=== PATIENT | male | born 1990 | race Caucasian/White ===

== ENCOUNTER 2020-05-06 11:46 | Emergency (ER) | payer BC ==
[2020-05-06 12:23] VITALS: BP 121/86; PULSE 87
--- NOTE | 2020-05-06 12:23 | EDM.PDOC ---
ED HPI GENERAL MEDICAL PROBLEM - General Chief Complaint: Genitourinary Problem Stated Complaint: PAIN IN GENITALS Time Seen by Provider: 05/06/20 12:16 Source of Information: Reports: Patient, RN Notes Reviewed History Limitations: Reports: No Limitations - History of Present Illness INITIAL COMMENTS - FREE TEXT/NARRATIVE: Patient is a 29-year-old male who presents to the ED for the evaluation of genital pain. Patient states that he woke up this morning, he has been experiencing pain in his testicles, what feels to be like in his penis as well, along with the rectum, and even up into his lower abdomen. Patient states he is having no nausea vomiting or diarrhea. He did have a good couple bowel movements yesterday. He denies any dysuria, frequency or urgency. He is noting no penile discharge as well. He states that it is a very sharp stabbing pain, nothing seems to make it better, he is not sure if anything even makes it worse, he thought may be walking helped a little bit, but then even walking around seemed to cause a lot of pain. He did not take anything for pain management. He did go to work this morning, but had to leave due to the pain. He states he has not had any fevers or chills, but states he gets hot flashes with the pain. He is sexually active, but does have a , and reports a monogamous relationship. He notes that he had a vasectomy 2 years ago. He denies any insertive anal sex that him and his practice, he is not worried about any STDs at today's visit. He is complaining mostly of posterior testicular pain. He notes both testicles to be within the scrotum. States his whole entire groin hurts, he states he has pain in his rectum, and up into his lower abdomen, testes and his penis. Groin Pain Score (Numeric/FACES): 9 - Related Data Allergies Allergy/AdvReac Type Severity Reaction Status Date / Time No Known Allergies Allergy Verified 05/06/20 12:23 Home Meds: Home Meds Acetaminophen/HYDROcodone [[place] 325-5 MG] 1 tab PO Q6H PRN #15 tablet 05/06/20 [Rx] Doxycycline [Vibramycin] 100 mg PO BID 14 Days #28 tab 05/06/20 [Rx] Levofloxacin 500 mg PO DAILY #9 tablet 05/06/20 [Rx] Past Medical History - Past Health History Medical/Surgical History: Denies Medical/Surgical History ED ROS GENERAL - Review of Systems Review Of Systems: Comprehensive ROS is negative, except as noted in HPI. ED EXAM, RENAL/ - Physical Exam Exam: See Below Exam Limited By: No Limitations General Appearance: Alert, WD/WN, No Apparent Distress (pt appears to be in pain, but no distress) Ears: Normal External Exam Nose: Normal Inspection Throat/Mouth: Normal Inspection Head: Atraumatic, Normocephalic Neck: Normal Inspection Respiratory/Chest: No Respiratory Distress, Lungs Clear, Normal Breath Sounds, No Accessory Muscle Use, Chest Non-Tender Cardiovascular: Normal Peripheral Pulses, Regular Rate, Rhythm, No Murmur GI/Abdominal: Normal Bowel Sounds, Soft, Non-Tender, No Distention, No Mass (Male) Exam: No Hernia, Normal Inspection, Circumcised, Deferred (prostate exam), Scrotum Tenderness (L) (posterior), Scrotum Tenderness (R) (posterior), Testicular Tenderness (L) (posterior), Testicular Tenderness (R) (posterior). No: Scrotal Swelling, Testicular Mass, Urethral Discharge Extremities: Normal Inspection, Normal Capillary Refill Neurological: Alert, Oriented, Normal Cognition, No Motor/Sensory Deficits Psychiatric: Normal Affect, Normal Mood Skin Exam: Warm, Dry, Intact, Normal Color, No Rash Course - Vital Signs Last Recorded V/S: Last Vital Signs Temp 97.4 F 05/06/20 12:20 Pulse 87 05/06/20 12:20 Resp 16 05/06/20 12:20 BP 121/86 05/06/20 12:20 Pulse Ox 97 05/06/20 12:20 - Orders/Labs/Meds Orders: Active Orders 24 hr Category Date Time Status UA W/MICROSCOPIC [URIN] Stat Lab 05/06/20 12:25 Ordered Labs: Laboratory Tests 05/06/20 Range/Units 12:25 Urine Color Yellow (Yellow) Urine Appearance Clear (Clear) Urine pH 5.5 (5.0-8.0) Ur Specific [place] 1.025 (1.005-1.030) Urine Protein Negative (Negative) Urine Glucose (UA) Negative (Negative) Urine Ketones 1+ H (Negative) Urine Occult Blood Negative (Negative) Urine Nitrite Negative (Negative) Urine Bilirubin Negative (Negative) Urine Urobilinogen 0.2 (0.2-1.0) Ur Leukocyte Esterase Negative (Negative) Meds: Medications Discontinued Medications Generic Name Dose Route Start Last Admin Trade Name Freq PRN Reason Stop Dose Admin Hydromorphone HCl 1 mg 05/06/20 12:26 05/06/20 12:41 Dilaudid IM 05/06/20 12:27 1 mg ONETIME ONE Administration Ketorolac Tromethamine 60 mg 05/06/20 12:36 05/06/20 12:41 Toradol IM 05/06/20 12:37 60 mg ONETIME ONE Administration Levofloxacin 500 mg 05/06/20 13:41 Levaquin PO 05/06/20 13:42 ONETIME ONE Ondansetron HCl 4 mg 05/06/20 12:26 05/06/20 12:42 Zofran Odt PO 05/06/20 12:27 4 mg ONETIME ONE Administration - Re-Assessments/Exams Free Text/Narrative Re-Assessment/Exam: 05/06/20 12:44 Patient presents to the ED for scrotal/penile pain. I do suspect epididymitis in nature. Ultrasound to be obtained along with urinalysis for initial evaluation. Patient will be given 1 mg IM Dilaudid, 60 mg IM Toradol, and 4 mg ODT Zofran for initial management. 05/06/20 13:38 Patient's ultrasound did come back, there was a possible mild left-sided epididymitis appreciated. Minimal hydroceles on both sides, small 3 mm epididymal cyst on the left side. No other abnormalities identified on the testicular ultrasound exam. UA is still pending. Patient did report pretty decent pain relief with the medications given. 05/06/20 14:32 UA is unremarkable. Patient will be sent home with 10 day course of Levaquin and will also need to start 2 week course of doxycycline to start after the Levaquin is finished for suspected prostate involvement. Departure - Departure Time of Disposition: 13:39 Disposition: Home, Self-Care 01 Condition: Good Clinical Impression: Epididymitis - Discharge Information *PRESCRIPTION DRUG MONITORING PROGRAM REVIEWED*: Yes *COPY OF PRESCRIPTION DRUG MONITORING REPORT IN PATIENT [place]: No Prescriptions: Levofloxacin 500 mg PO DAILY #9 tablet Acetaminophen/HYDROcodone [[place] 325-5 MG] 1 tab PO Q6H PRN #15 tablet PRN Reason: Pain Doxycycline [Vibramycin] 100 mg PO BID 14 Days #28 tab Instructions: Epididymitis Referrals: PCP,None [Primary Care Provider] - Forms: ED Department Discharge Additional Instructions: You were evaluated in the ER today for your groin and scrotal pain. You have been diagnosed with epididymitis and suspected prostatitis. Treatment for this will be antibiotics, pain medications and anti-inflammatories. 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 You were given a prescription for a strong pain medication, hydrocodone/acetaminophen 5/325mg, please take 1 tab every 6 hours as needed for pain not relieved by Tylenol or ibuprofen alone. Please note this medication does contain Tylenol in it, so do not take more than 4000 mg in a 24-hour time span. These medications can be addictive, so please take as few as possible to achieve adequate pain control. These meds can also be quite constipating, recommend that you increase your oral fluid intake and take a stool softener like MiraLAX while taking these medications. Do not drive while taking this medication. Recommend you also take 600 mg ibuprofen every 6 hours for further inflammation relief. You may also try to elevate your scrotum, to help provide further pain relief. Please return to the ER at any time if your symptoms change or worsen. Sepsis Event Note (ED) - Focused Exam Vital Signs: Vital Signs Temp Pulse Resp BP Pulse Ox 05/06/20 12:20 97.4 F 87 16 121/86 97 - My Orders Last 24 Hours: My Active Orders 05/06/20 12:25 UA W/MICROSCOPIC [URIN] Stat - Assessment/Plan Last 24 Hours: My Active Orders 05/06/20 12:25 UA W/MICROSCOPIC [URIN] Stat
[2020-05-06] MEDS ORDERED: Ondansetron 4 MG Tab.DIS PO ONE (12:26)
[2020-05-06] MEDS ORDERED: HYDROmorphone 1 MG/ML Syringe IM ONE (12:26)
[2020-05-06] MEDS ORDERED: Ketorolac 60 MG/2 ML SDV IM ONE (12:36)
--- NOTE | 2020-05-06 13:30 | US ---
Testicular ultrasound: Multiple real-time images of the testicles were obtained. Testicles are felt to be fairly homogeneous in ultrasound appearance. No intratesticular abnormality is seen. Small epididymal cyst on the left side measuring 3 mm. Small amount of fluid around both testicles is seen. Arterial and venous blood flow are seen within the testicles. Slight increased vascular flow is seen within the left epididymis raising the possibility of mild epididymitis. Impression: 1. Possible mild left-sided epididymitis. 2. Minimal hydroceles on both sides. 3. Small 3 mm epididymal cyst on the left side. 4. No additional abnormality is seen on testicular ultrasound exam. Diagnostic code #3 Study was dictated in MDT
[2020-05-06] MEDS ORDERED: Levofloxacin 500 MG Tab PO ONE (13:41)
== END 2020-05-06 14:49 | disposition home or self-care (01) ==
LOC: JD.ED 11:46
DX: N45.1 Epididymitis (principal); Z79.899 Other long term (current) drug therapy
CPT/HCPCS: 76870; 81001; 93975; 96372; 99284; A9270; J1170; J1885; 99283